=== PATIENT | female | born 1975 | race Caucasian/White ===

== ENCOUNTER 2023-08-16 09:50 | Day surgery (SDC) | payer OTHER ==
[2023-08-14 16:52] VITALS: BMI 19.8
[2023-08-16 13:18] VITALS: BP 115/59; PULSE 53; RESP 19; TEMP 97.6
== END 2023-08-16 11:34 | disposition home or self-care (01) ==
LOC: FASU-ENDO 09:50
PROVIDERS: ATTEND Internal Medicine Gastroenterology
PROC: 0DJD8ZZ Inspection of Lower Intestinal Tract, Via Natural or Artificial Opening Endoscopic (ICD-10-PCS; principal; 2023-08-16 10:53)
DX: Z12.11 Encounter for screening for malignant neoplasm of colon (principal); K64.1 Second degree hemorrhoids; K64.8 Other hemorrhoids
CPT/HCPCS: 81025